=== PATIENT | female | born 1945 | race Caucasian/White ===

== ENCOUNTER 2018-06-07 21:40 | Emergency (ER) | payer OTHER | END 2018-06-08 03:33 | disposition home or self-care (01) | LOC: FTE 21:40 | DX: H11.151 Pinguecula, right eye (principal) | CPT/HCPCS: 70450; 99284-25 ==

== ENCOUNTER 2018-10-28 10:41 | Inpatient (IN) | payer OTHER ==
[2018-10-28 11:30] LABS: ADD MAN DIFF? NO
[2018-10-28 11:33] LABS: WHITE BLOOD COUNT 5.5 10^3/ul (4.8-10.8)
[2018-10-28 11:33] LABS: BASOPHILS % 0.5 % (0.0-2.0); EOSINOPHILS # 0.4 10^3/ul (0.0-0.5); EOSINOPHILS % 7.4 % (0.0-7.0); HEMATOCRIT 38.9 % (37.0-47.0); HEMOGLOBIN 12.6 g/dl (12.0-16.0); LYMPHOCYTES # 2.2 10^3/ul (0.8-2.9); MEAN CORPUSCULAR HEMOGLOBIN 32.8 pg (29.0-33.0); MEAN CORPUSCULAR HGB CONC 32.4 g/dl (32.0-37.0); MEAN CORPUSCULAR VOLUME 101.3 fl (82.0-101.0); MEAN PLATELET VOLUME 8.5 fl (7.4-10.4); MONOCYTE # 0.5 10^3/ul (0.3-0.9); MONOCYTES % 8.3 % (0.0-11.0); NEUTROPHIL # 2.4 10^3/ul (1.6-7.5); NEUTROPHILS % 43.6 % (39.0-77.0); PLATELET COUNT 351 10^3/UL (140-415); RED BLOOD COUNT 3.84 10^6/ul (4.20-5.40); RED CELL DISTRIBUTION WIDTH 11.8 % (11.5-14.5)
[2018-10-28 11:51] LABS: ALANINE AMINOTRANSFERASE 23 IU/L (13-69); ALBUMIN 4.1 g/dl (3.3-4.9); ALKALINE PHOSPHATASE 133 IU/L (42-121); ANION GAP 8 (5-13); ASPARTATE AMINO TRANSFERASE 30 IU/L (15-46); BILIRUBIN,INDIRECT 0.2 mg/dl (0-1.1); BILIRUBIN,TOTAL 0.2 mg/dl (0.2-1.3); BLOOD UREA NITROGEN 10 mg/dl (7-20); CALCIUM 9.4 mg/dl (8.4-10.2); CARBON DIOXIDE 27 mmol/L (21-31); CHLORIDE 105 mmol/L (97-110); CREATINE KINASE 47 IU/L (23-200); CREATININE 0.67 mg/dl (0.44-1.00); GLUCOSE 87 mg/dl (70-220); POTASSIUM 4.5 mmol/L (3.5-5.1); SODIUM 140 mmol/L (135-144); TOTAL PROTEIN 7.5 g/dl (6.1-8.1)
[2018-10-28 12:00] LABS: INR 0.83; PROTIME 11.5 Sec (11.9-14.9); PT RATIO 0.9
[2018-10-28 12:01] LABS: PARTIAL THROMBOPLASTIN TIME 29.9 Sec (23.0-35.0)
[2018-10-28 12:03] LABS: B-TYPE NATRIURETIC PEPTIDE 101 PG/ML (0-125); CK INDEX 0.5; CK-MB < 0.22 ng/ml (0.0-2.4); D-DIMER 1300.75 ng/ml (<460); TROPONIN-I < 0.012 ng/ml (0.000-0.120)
[2018-10-28] MEDS: IOHEXOL 100 ML (12:50)
[2018-10-28] MEDS: SOD CHLORIDE 0.9% 100 ML (12:50)
[2018-10-28 13:09] LABS: ADD UMIC NO; UR ASCORBIC ACID NEGATIVE (NEGATIVE); UR BILIRUBIN (Dip) NEGATIVE (NEGATIVE); UR BLOOD (Dip) NEGATIVE (NEGATIVE); UR CLARITY CLEAR (CLEAR); UR COLOR YELLOW (YELLOW); UR GLUCOSE (Dip) NEGATIVE (NEGATIVE); UR KETONES (Dip) NEGATIVE (NEGATIVE); UR LEUKOCYTE ESTERASE (Dip) NEGATIVE Leu/ul (NEGATIVE); UR NITRITE (Dip) NEGATIVE (NEGATIVE); UR TOTAL PROTEIN (Dip) NEGATIVE (NEGATIVE); UR UROBILINOGEN (Dip) NEGATIVE (NEGATIVE)
[2018-10-28] MEDS: ENOXAPARIN 80 MG/0.8 ML SYG SC ×2 (13:16→20:29)
[2018-10-28] MEDS ORDERED: ACETAMINOPHEN 325 MG TAB PO (15:30)
[2018-10-28] MEDS ORDERED: MAGNESIUM HYDROXIDE 30ML CUP PO (15:30)
[2018-10-28] MEDS ORDERED: morphine 2 MG INJ IV (15:30)
[2018-10-28] MEDS ORDERED: LORAZEPAM 2 MG INJ IV (15:30)
[2018-10-28] MEDS ORDERED: NITROGLYCERIN (SL) 0.4 MG TAB SL (15:30)
[2018-10-28] MEDS ORDERED: DOCUSATE SODIUM 100 MG CAP PO (15:30)
[2018-10-28] MEDS ORDERED: ALBUTEROL/IPRATROPIUM (NEB) 3 ML AMP HHN (15:30)
[2018-10-28] MEDS ORDERED: hydrALAzine 20 MG INJ IV (15:30)
[2018-10-28] MEDS ORDERED: ONDANSETRON 4 MG INJ IV (15:30)
[2018-10-28] MEDS ORDERED: NACL 0.9% 3 ML SYG IV (15:30)
[2018-10-28 16:01] LABS: FREE T4 (FREE THYROXINE) 1.19 ng/dl (0.78-2.44)
[2018-10-28] MEDS: FAMOTIDINE 20 MG TAB PO (16:55)
[2018-10-28] MEDS: HYDROCODONE/APAP (5/325) TAB PO (16:55)
[2018-10-28] MEDS: SOD CHLORIDE 0.45% 1,000 ML IV (16:56)
[2018-10-28] MEDS: ONDANSETRON 4 MG INJ IV (18:48)
[2018-10-28] MEDS: ACETAMINOPHEN 325 MG TAB PO (19:35)
[2018-10-28] MEDS: morphine SULFATE/PF (2 MG/2 ML) SYG IV (21:07)
[2018-10-29] MEDS: SOD CHLORIDE 0.45% 1,000 ML IV (04:32)
[2018-10-29 05:10] LABS: ADD MAN DIFF? NO
[2018-10-29 05:19] LABS: BASOPHILS % 0.3 % (0.0-2.0); EOSINOPHILS % 0.2 % (0.0-7.0); LYMPHOCYTES # 0.9 10^3/ul (0.8-2.9); LYMPHOCYTES % 14.6 % (15.0-51.0); MEAN CORPUSCULAR HEMOGLOBIN 33.3 pg (29.0-33.0); MEAN CORPUSCULAR HGB CONC 33.3 g/dl (32.0-37.0); MEAN PLATELET VOLUME 8.7 fl (7.4-10.4); MONOCYTE # 0.3 10^3/ul (0.3-0.9); MONOCYTES % 4.5 % (0.0-11.0); NEUTROPHIL # 4.8 10^3/ul (1.6-7.5); NEUTROPHILS % 80.1 % (39.0-77.0); PLATELET COUNT 313 10^3/UL (140-415); RED CELL DISTRIBUTION WIDTH 11.8 % (11.5-14.5)
[2018-10-29 05:23] LABS: HEMOGLOBIN A1C 5.3 % (0-5.9)
[2018-10-29 05:55] LABS: ANION GAP 7 (5-13); BLOOD UREA NITROGEN 8 mg/dl (7-20); CALCIUM 9.1 mg/dl (8.4-10.2); CARBON DIOXIDE 26 mmol/L (21-31); CHLORIDE 104 mmol/L (97-110); CHOL/HDL RATIO 4.1 RATIO; CHOLESTEROL 222 mg/dl (100-200); CREATININE 0.56 mg/dl (0.44-1.00); GLUCOSE 126 mg/dl (70-220); HDL CHOLESTEROL 54 mg/dl (33-92); LDL CHOLESTEROL,CALCULATED 139 mg/dl; MAGNESIUM 2.1 mg/dl (1.7-2.5); PHOSPHORUS 4.1 mg/dl (2.5-4.9); POTASSIUM 3.9 mmol/L (3.5-5.1); SODIUM 137 mmol/L (135-144); TRIGLYCERIDES 145 mg/dl (0-149)
[2018-10-29 06:14] LABS: THYROID STIMULATING HORMONE 0.177 MIU/L (0.465-4.680)
[2018-10-29] MEDS: FAMOTIDINE 20 MG TAB PO (08:41)
[2018-10-29] MEDS: ENOXAPARIN 80 MG/0.8 ML SYG SC (09:00)
[2018-10-29 10:41] LABS: ADD UMIC NO; UR ASCORBIC ACID NEGATIVE (NEGATIVE); UR BILIRUBIN (Dip) NEGATIVE (NEGATIVE); UR BLOOD (Dip) NEGATIVE (NEGATIVE); UR CLARITY CLEAR (CLEAR); UR COLOR YELLOW (YELLOW); UR GLUCOSE (Dip) NEGATIVE (NEGATIVE); UR KETONES (Dip) NEGATIVE (NEGATIVE); UR LEUKOCYTE ESTERASE (Dip) NEGATIVE Leu/ul (NEGATIVE); UR NITRITE (Dip) NEGATIVE (NEGATIVE); UR RBC 0 /HPF (0-5); UR SPECIFIC GRAVITY (Dip) 1.009 (1.003-1.030); UR TOTAL PROTEIN (Dip) NEGATIVE (NEGATIVE); UR UROBILINOGEN (Dip) NEGATIVE (NEGATIVE); UR WBC 1 /HPF (0-5)
[2018-10-29] MEDS ORDERED: morphine LIQ (10 MG/5 ML) CUP PO (16:30)
[2018-10-29] MEDS ORDERED: APIXABAN 5 MG TABLET PO (21:00)
[2018-11-05] MEDS ORDERED: APIXABAN 5 MG TABLET PO (09:00)
== END 2018-10-29 16:05 | disposition home or self-care (01) | DRG 176 ==
LOC: E/R 10:41 → 6WM 13:35
DX: I26.99 Other pulmonary embolism without acute cor pulmonale (principal); I10 Essential (primary) hypertension
CPT/HCPCS: 71045; 71275; 80048; 80053; 80061; 81003; 82550; 82553; 83036; 83735; 83880; 84100; 84439; 84443; 84484; 85025; 85378; 85610; 85730; 87086; 93005; 93306; 93970; 96372; 97161; 99291-25